=== PATIENT | female | born 1935 | race Caucasian/White ===

== ENCOUNTER 2018-07-26 09:51 | Inpatient (IN) | payer MEDICARE, OTHER ==
[~2018-07-26 09:51] MED LIST: ETOMIDATE 20 MG INJ; ROCURONIUM 50 MG INJ
[2018-07-26] MEDS ORDERED: PROPOFOL 100 ML (10:04)
[2018-07-26 10:28] LABS: ADD MAN DIFF? NO
[2018-07-26] MEDS: PROPOFOL 100 ML IV ×3 (10:30→14:59)
[2018-07-26 10:31] LABS: HEMATOCRIT 34.9 % (37.0-47.0); HEMOGLOBIN 11.3 g/dl (12.0-16.0); LYMPHOCYTES # 0.8 10^3/ul (0.8-2.9); LYMPHOCYTES % 8.9 % (15.0-51.0); MEAN CORPUSCULAR HGB CONC 32.4 g/dl (32.0-37.0); MEAN CORPUSCULAR VOLUME 92.6 fl (82.0-101.0); MEAN PLATELET VOLUME 9.6 fl (7.4-10.4); MONOCYTE # 0.4 10^3/ul (0.3-0.9); MONOCYTES % 4.1 % (0.0-11.0); NEUTROPHIL # 7.4 10^3/ul (1.6-7.5); NEUTROPHILS % 86.1 % (39.0-77.0); PLATELET COUNT 199 10^3/UL (140-415); RED BLOOD COUNT 3.77 10^6/ul (4.20-5.40); RED CELL DISTRIBUTION WIDTH 15.2 % (11.5-14.5)
[2018-07-26 10:31] LABS: WHITE BLOOD COUNT 8.6 10^3/ul (4.8-10.8)
[2018-07-26] MEDS: SOD CHLORIDE 0.9% IV (10:46)
[2018-07-26 10:51] LABS: ALANINE AMINOTRANSFERASE 21 IU/L (13-69); ALKALINE PHOSPHATASE 53 IU/L (42-121); ANION GAP 10 (5-13); ASPARTATE AMINO TRANSFERASE 27 IU/L (15-46); BILIRUBIN,INDIRECT 0.2 mg/dl (0-1.1); BILIRUBIN,TOTAL 0.2 mg/dl (0.2-1.3); BLOOD UREA NITROGEN 43 mg/dl (7-20); CALCIUM 6.6 mg/dl (8.4-10.2); CARBON DIOXIDE 16 mmol/L (21-31); CHLORIDE 121 mmol/L (97-110); CREATININE 1.46 mg/dl (0.44-1.00); GLUCOSE 126 mg/dl (70-220); SODIUM 147 mmol/L (135-144); TOTAL PROTEIN 4.5 g/dl (6.1-8.1)
[2018-07-26 10:52] LABS: ACETAMINOPHEN < 10.0 ug/ml (10.0-30.0); ETHANOL < 10.0 mg/dl (0-0); SALICYLATE < 1.0 mg/dl (5.0-30.0)
[2018-07-26 10:56] LABS: AMMONIA < 9 umol/l (9-30)
[2018-07-26 10:56] LABS: POTASSIUM 2.7 mmol/L (3.5-5.1)
[2018-07-26 10:57] LABS: ADD UMIC YES; UR ASCORBIC ACID NEGATIVE (NEGATIVE); UR BACTERIA FEW /HPF (NONE SEEN); UR BILIRUBIN (Dip) NEGATIVE (NEGATIVE); UR BLOOD (Dip) 2+ mg/dL (NEGATIVE); UR CLARITY CLEAR (CLEAR); UR COLOR AMBER (YELLOW); UR GLUCOSE (Dip) NEGATIVE (NEGATIVE); UR KETONES (Dip) NEGATIVE (NEGATIVE); UR LEUKOCYTE ESTERASE (Dip) NEGATIVE Leu/ul (NEGATIVE); UR NITRITE (Dip) NEGATIVE (NEGATIVE); UR RBC 11 /HPF (0-5); UR SPECIFIC GRAVITY (Dip) 1.019 (1.003-1.030); UR SQUAMOUS EPITHELIAL CELL FEW /HPF (FEW); UR TOTAL PROTEIN (Dip) 1+ mg/dl (NEGATIVE); UR UROBILINOGEN (Dip) 2+ mg/dL (NEGATIVE); UR WBC 2 /HPF (0-5)
[2018-07-26 11:06] LABS: INR 1.38; PROTIME 17.1 Sec (11.9-14.9); PT RATIO 1.3
[2018-07-26 11:07] LABS: T4 (THYROXINE) 7.1 ug/dl (5.5-11.0)
[2018-07-26 11:11] LABS: TROPONIN-I 0.546 ng/ml (0.000-0.120)
[2018-07-26] MEDS ORDERED: NORepinephrine 8MG/250 ML (PMX 250 ML (11:22)
[2018-07-26 11:23] LABS: AADO2 Arterial 203.3 mmHg (7.0-24.0); AMPHETAMINE/METHAMPHETAMINE Negative (NEGATIVE); Allen Test ACCEPTAB; Arterial Blood Gas Oxygen Sat 99.6 mmHG (95.0-100.0); Arterial COHb 0.1 % (0.0-3.0); Arterial Fraction of Oxyhgb 99.1 % (93.0-99.0); Arterial HCO3 13.5 mmol/L (22.0-26.0); Arterial MetHb 0.4 % (0.0-1.5); Arterial pCO2 19.8 mmhg (35-45); BARBITURATES Negative (NEGATIVE); BENZODIAZEPINES Negative (NEGATIVE); CANNABINOIDS Negative (NEGATIVE); COCAINE Negative (NEGATIVE); MODE VENT - AC; OPIATES Negative (NEGATIVE); Site Left Radial
[2018-07-26] MEDS: NORepinephrine 8MG/250 ML (PMX 250 ML IV (11:25)
[2018-07-26] MEDS: CEFEPIME 2GM/50 ML (PMX) 50 ML IVPB (12:50)
[2018-07-26] MEDS: CALCIUM GLUCONATE 10% 1 GM in DEXTROSE 5% 100 ML IVPB (12:56)
[2018-07-26] MEDS: POTASSIUM CHLORIDE 100 ML IVPB (12:56)
[2018-07-26 13:43] LABS: FREE THYROXINE INDEX (Calc) 4.02 ug/ml (0.65-3.89)
[2018-07-26 13:45] LABS: T3 UPTAKE 56.6 % (23.5-40.5)
[2018-07-26] MEDS: VANCOMYCIN 1 GM (PMX) 250 ML IVPB (14:56)
[2018-07-26] MEDS ORDERED: ACETAMINOPHEN 650MG/20.3ML CUP NGT (15:00)
[2018-07-26] MEDS ORDERED: ENOXAPARIN 100 MG/ML SYG SC (15:00)
[2018-07-26] MEDS: SOD CHLORIDE 0.9% 1,000 ML IV (16:55)
[2018-07-26] MEDS: ENOXAPARIN 60 MG/0.6 ML SYG SC (16:56)
[2018-07-26] MEDS: ASPIRIN 81 MG TAB GTB (18:30)
[2018-07-26 18:40] LABS: LACTIC ACID 8.2 mmol/L (0.5-2.0)
[2018-07-26 18:44] LABS: CREATINE KINASE 208 IU/L (23-200)
[2018-07-26 18:57] LABS: CK INDEX 10.5
[2018-07-26 20:17] LABS: ANION GAP 16 (5-13); BLOOD UREA NITROGEN 51 mg/dl (7-20); CALCIUM 9.2 mg/dl (8.4-10.2); CARBON DIOXIDE 16 mmol/L (21-31); CHLORIDE 112 mmol/L (97-110); CREATININE 1.87 mg/dl (0.44-1.00); GLUCOSE 146 mg/dl (70-220); POTASSIUM 4.5 mmol/L (3.5-5.1); SODIUM 144 mmol/L (135-144)
[2018-07-26 20:27] LABS: MAGNESIUM 2.2 mg/dl (1.7-2.5)
[2018-07-26] MEDS ORDERED: POTASSIUM CHLORIDE 50 ML IVPB (20:30)
[2018-07-26] MEDS: ATORVASTATIN 10 MG TAB NGT (21:00)
[2018-07-26] MEDS: DOCUSATE SODIUM 100 MG CAP PO (21:00)
[2018-07-26 23:02] LABS: LACTIC ACID 5.6 mmol/L (0.5-2.0)
[2018-07-27 05:28] LABS: ADD MAN DIFF? NO
[2018-07-27 05:30] LABS: BASOPHILS % 0.1 % (0.0-2.0); HEMATOCRIT 45.6 % (37.0-47.0); HEMOGLOBIN 14.4 g/dl (12.0-16.0); LYMPHOCYTES % 6.5 % (15.0-51.0); MEAN CORPUSCULAR HEMOGLOBIN 29.7 pg (29.0-33.0); MEAN CORPUSCULAR HGB CONC 31.6 g/dl (32.0-37.0); MEAN PLATELET VOLUME 10.1 fl (7.4-10.4); MONOCYTE # 0.6 10^3/ul (0.3-0.9); NEUTROPHIL # 13.9 10^3/ul (1.6-7.5); NEUTROPHILS % 88.8 % (39.0-77.0); PLATELET COUNT 210 10^3/UL (140-415); RED BLOOD COUNT 4.85 10^6/ul (4.20-5.40); RED CELL DISTRIBUTION WIDTH 15.3 % (11.5-14.5)
[2018-07-27 05:30] LABS: WHITE BLOOD COUNT 15.6 10^3/ul (4.8-10.8)
[2018-07-27] MEDS: SOD CHLORIDE 0.9% 1,000 ML IV ×2 (05:30→13:29)
[2018-07-27 05:48] LABS: ALANINE AMINOTRANSFERASE 18 IU/L (13-69); ALBUMIN 2.8 g/dl (3.3-4.9); ALKALINE PHOSPHATASE 86 IU/L (42-121); ANION GAP 12 (5-13); ASPARTATE AMINO TRANSFERASE 45 IU/L (15-46); BILIRUBIN,INDIRECT 0.2 mg/dl (0-1.1); BILIRUBIN,TOTAL 0.2 mg/dl (0.2-1.3); BLOOD UREA NITROGEN 51 mg/dl (7-20); CALCIUM 8.3 mg/dl (8.4-10.2); CARBON DIOXIDE 16 mmol/L (21-31); CHLORIDE 115 mmol/L (97-110); CREATININE 1.76 mg/dl (0.44-1.00); GLUCOSE 187 mg/dl (70-220); POTASSIUM 3.7 mmol/L (3.5-5.1); SODIUM 143 mmol/L (135-144); TOTAL PROTEIN 5.9 g/dl (6.1-8.1)
[2018-07-27 05:52] LABS: CHOL/HDL RATIO 6.1 RATIO; HDL CHOLESTEROL 41 mg/dl (33-92); LDL CHOLESTEROL,CALCULATED 151 mg/dl; TRIGLYCERIDES 300 mg/dl (0-149)
[2018-07-27 05:52] LABS: CHOLESTEROL 252 mg/dl (100-200)
[2018-07-27 05:55] LABS: LACTIC ACID 2.8 mmol/L (0.5-2.0)
[2018-07-27 06:18] LABS: HEMOGLOBIN A1C 5.2 % (0-5.9)
[2018-07-27 06:23] LABS: THYROID STIMULATING HORMONE 0.221 MIU/L (0.465-4.680)
[2018-07-27] MEDS: PANTOPRAZOLE 40 MG INJ IV (06:30)
[2018-07-27] MEDS: LEVOTHYROXINE 75 MCG TAB PO (07:00)
[2018-07-27] MEDS: ENOXAPARIN 60 MG/0.6 ML SYG SC (08:42)
[2018-07-27] MEDS: DOCUSATE SODIUM 100 MG CAP PO (09:00)
[2018-07-27] MEDS: ASPIRIN 81 MG TAB GTB (09:00)
[2018-07-27 09:08] LABS: AADO2 Arterial 100.2 mmHg (7.0-24.0); Allen Test ACCEPTAB; Arterial Base Excess -9.1 mmol/L (-3.0-3); Arterial COHb 0.2 % (0.0-3.0); Arterial Fraction of Oxyhgb 98.4 % (93.0-99.0); Arterial HCO3 12.9 mmol/L (22.0-26.0); Arterial MetHb 0.4 % (0.0-1.5); MODE VENT - AC; Site Right Radial
[2018-07-27] MEDS ORDERED: ASPIRIN 300 MG SUPP PR (10:00)
[2018-07-27] MEDS: VASOPRESSIN 60 UNIT in DEXTROSE 5% 57 ML IV (12:15)
[2018-07-27] MEDS: morphine (DRIP) 100 MG/100 ML 100 ML IV (15:05)
[2018-07-28] MEDS ORDERED: ENOXAPARIN 30 MG/0.3 ML SYG SC (09:00)
== END 2018-07-27 23:48 | disposition expired | DRG 871 ==
LOC: E/R 09:51 → ICU 11:45
PROC: 0BH17EZ Insertion of Endotracheal Airway into Trachea, Via Natural or Artificial Opening (ICD-10-PCS; principal; 2018-07-26)
PROC: 5A1935Z Respiratory Ventilation, Less than 24 Consecutive Hours (ICD-10-PCS; 2018-07-26)
DX: A41.9 Sepsis, unspecified organism (principal); I21.4 Non-ST elevation (NSTEMI) myocardial infarction; R65.21 Severe sepsis with septic shock; J96.00 Acute respiratory failure, unspecified whether with hypoxia or hypercapnia; N17.0 Acute kidney failure with tubular necrosis; G93.41 Metabolic encephalopathy; E87.2 Acidosis; E87.0 Hyperosmolality and hypernatremia; E03.9 Hypothyroidism, unspecified; N18.9 Chronic kidney disease, unspecified; E83.51 Hypocalcemia; Z66 Do not resuscitate
CPT/HCPCS: 36600; 70450; 71045; 80048; 80053; 80061; 80307; 81001; 82140; 82550; 82553; 82803; 83036; 83605; 83735; 84436; 84443; 84479; 84484; 85025; 85610; 87040; 87081; 87086; 87400; 93005; 93306; 94002; 94003; 94770; 96374; 99291-25